=== PATIENT | female | born 1995 | race Caucasian/White ===

== ENCOUNTER 2018-10-04 05:35 | Inpatient (IN) | payer BC ==
--- NOTE | 2018-10-03 07:43 | P.HPOB ---
History of Present Illness H&P Date: 10/03/18 Chief Complaint: Repeat and tubal ligation This patient is a pleasant 23-year-old 2 para 1 female estimated date of confinement 10/05/2018 estimated gestational age 39-6/7 weeks gestation who is admitted to labor and delivery for elective repeat section and tubal ligation. Patient's is complicated by infertility and she conceived on Clomid. otherwise been uncomplicated with the exception of an episode of food poisoning. Patient's had a previous section desires repeat is also requesting permanent sterilization. 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 Morbid obesity History of Any Multi-Drug Resistant Organisms: None Reported Past Surgical History: Section Additional Past Surgical History / Comment(s): Exc [facility] Brain Tumor, C-S, lymph node left ear Past Anesthesia/Blood Transfusion Reactions: No Reported Reaction Smoking Status: Former smoker Past Alcohol Use History: None Reported Past Drug Use History: None Reported - Past Family History Father Family Medical History: Cancer, Coronary Artery Disease (CAD), Diabetes Mellitus, Hypertension Additional Family Medical History / Comment(s): SKIN CA Mother Family Medical History: Hypertension, Musculoskeletal Disorder, Renal Disease Additional Family Medical History / Comment(s): arthritis Medications and Allergies Home Medications Medication Instructions Recorded Confirmed Type Pnv,Calcium 72/Iron/Folic Acid 1 tab PO DAILY 07/19/18 09/29/18 History [ Plus Tablet] Allergies Allergy/AdvReac Type Severity Reaction Status Date / Time No Known Allergies Allergy Verified 09/29/18 12:39 Exam - OBG Physical Exam Abdomen: bowel sounds normal, no diffuse tenderness, no bruit present, no guarding noted, no hepatomegaly, no splenomegaly, no mass Vulva: both: normal Vagina: normal moisture, no discharge Cervix: no lesion (Cervix is closed this time.), no discharge Uterus: enlarged (Fundal height 43 cm) Results blood work shows she is A positive, rubella immune, RPR nonreactive, hepatitis B negative, Glucola was normal, ultrasounds have been normal, group B strep was positive. Assessment and Plan Assessment: This is a pleasant 23-year-old 2 para 1 female 39-6/7 weeks gestation admitted to labor and delivery for elective repeat section and also requesting permanent sterilization. Plan is repeat low transverse section and bilateral partial salpingectomy. Patient I've discussed this surgery and risks including risks of infection, bleeding, possible injury bowel, bladder, vessels, and/or other organs. She understands the risk of DVT and pulmonary embolism. Patient also understands a tubal ligation is considered permanent although there is a failure rate of less than 5 per thousand procedures done. All the patient's questions are answered written consent is obtained (1) 40 weeks gestation of Status: Acute Code(s): Z3A.40 - 40 WEEKS GESTATION OF SNOMED Co de(s): 70979945 (2) Previous delivery affecting Status: Acute Code(s): O34.219 - MATERNAL CARE FOR UNSP TYPE SCAR FROM PREVIOUS DEL SNOMED Code(s): 982776827 (3) Family planning Status: Acute Code(s): Z30.09 - ENCOUNTER FOR OTH GENERAL CNSL AND ADVICE ON CONTRACEPTION SNOMED Code(s): 026569558 (4) Group B streptococcal infection Status: Acute Code(s): A49.1 - STREPTOCOCCAL INFECTION, UNSPECIFIED SITE SNOMED Code(s): 923887788
[2018-10-04] MEDS ORDERED: LACTATED RINGERS 1,000 ML IV SCH (05:44)
[2018-10-04] MEDS ORDERED: CITRIC ACID-SODIUM CITRATE 15 ML CUP PO ONE (05:44)
[2018-10-04] MEDS ORDERED: LACTATED RINGERS 1,000 ML IV ONE (05:44)
[2018-10-04 06:19] LABS: Basophils % (A) 0 %; Eosinophils # (A) 0.1 k/uL (0-0.7); Eosinophils % (A) 1 %; HCT 36.2 % (34.0-46.0); HGB 11.8 gm/dL (11.4-16.0); Lymphocytes # (A) 2.2 k/uL (1.0-4.8); Lymphocytes % (A) 27 %; MCH 29.6 pg (25.0-35.0); MCHC 32.6 g/dL (31.0-37.0); MCV 90.6 fL (80.0-100.0); Monocytes # (A) 0.6 k/uL (0-1.0); Monocytes % (A) 7 %; Neutrophils % (A) 62 %; Platelet Count 230 k/uL (150-450); RDW 14.1 % (11.5-15.5)
[2018-10-04 06:30] VITALS: BMI 46.6
[2018-10-04] MEDS ORDERED: ceFAZolin 3 GM in SODIUM CHLORIDE 0.9% 100 ML IVPB ONE (07:15)
[2018-10-04] MEDS ORDERED: MORPHINE SULFATE (PF) 0.3 MG/0.3 ML SYR ONE (07:47)
[2018-10-04] MEDS ORDERED: ONDANSETRON 4 MG/2 ML VIAL ONE (07:47)
[2018-10-04] MEDS ORDERED: OXYTOCIN 10 UNIT/ML 1 ML VIAL ONE (07:47)
[2018-10-04] MEDS ORDERED: DEXAMETHASONE SOD PHOS (MDV) 100 MG/10 ML VIAL ONE (07:47)
[2018-10-04] MEDS ORDERED: KETOROLAC 30 MG/ML 1 ML VIAL ONE (07:47)
[2018-10-04] MEDS ORDERED: ePHEDrine SULFATE/0.9% NACL/PF 50 MG/5 ML SYRINGE IV ONE (07:47)
--- NOTE | 2018-10-04 08:49 | P.OP ---
Date of Procedure: 10/04/18 Preoperative Diagnosis: #1: 39-6/7 week intrauterine . #2: Previous section desires repeat. #3: Multi parity desires permanent sterilization Postoperative Diagnosis: Same Procedure(s) Performed: Repeat low transverse section and bilateral partial salpingectomy Anesthesia: spinal Surgeon: Lan Hathaway Dirt Supervisor #1: Joycelyn Henderson Estimated Blood Loss (ml): 1,000 Pathology: other (Bilateral fallopian tube segments) Condition: stable Disposition: floor Indications for Procedure: Please see dictated H&P for intimate details of this patient's admission. Brief summary this is a pleasant 23-year-old 2 para 1 female 39-6/7 weeks gestation who is admitted to labor and delivery for elective repeat section and also requesting permanent sterilization. Patient had a previous section does desire repeat. Patient states she is done having children and has requested permanent sterilization for control. She understands a tubal ligation is permanent however there is a failure rate of approximately 5 or less per thousand procedures done. She understands that this surgery itself has risks including risks of infection, bleeding, possible injury bowel, bladder, vessels, and/or other organs. All the patient's questions are answered and a written consent is obtained. Operative Findings: This patient had a vigorous viable female infant Apgars 9 and 9 delivery time is 0808 hrs. has spontaneous respirations and good cry and grossly appears normal. Description of Procedure: This patient has a Geronimo catheter placed to straight drain. She subsequently taken to the operating room where she sat up and spinal anesthetic is administered. With an adequate level of anesthesia she is abdominal prep and drape. Scalpels and taken the previous Pfannenstiel incision is incised. A second scalpel is taken down to the fascia the fascia scored with a scalpel. Fascial incision extended bilaterally using the Berger scissors. Fascia is dissected off the rectus muscles sharply. Rectus muscles are the peritoneum identified and entered sharply. Peritoneal incision extended superior and inferior without difficulty. Bladder blade is then placed. Bladder peritoneum as well on the lower uterine segment and therefore scalpels taken a low transverse uterine incision is made above this. Using a hemostat I into the uterine cavity bluntly and there is loss of clear fluid. This incision is then extended bluntly and the 's head is guided through the incision with fundal pressure. Mouth and nares are bulb suctioned there is a nuchal cord 1 which is reduced. We then deliver rest this 's body. This is a vigorous viable female Apgars are 9 and 9 delivery time is 0808 hrs. After delivery of the infant the umbilical cord is doubly clamped and cut. The placenta is then manually extracted intact. Uterus is then externalized and the demarcated with Carpenter clamps. Uterine incision and explored and all debris removed from the uterine cavity. Uterine incision is then closed using 0 Vicryl running locked fashion 2 layers in excellent hemostasis is noted. Then turned my attention a left fallopian tube approximately 4 cm from the cornual insertion I make a small window in the mesial salpinx with Bovie cautery. Using 2-0 silk I doubly ligate a 1-2 cm segment of left fallopian tube. This is handed off to pathology. Cauterization is done of the tubal ends. Excellent hemostasis is noted turned my attention the right fallopian tube is attenuated appears to be buried somewhat in the mesial salpinx. I carefully dissect this out and then with a similar technique excise a small portion of the right fallopian tube. Cauterization is done of the tubal ends. Again good hemostasis is noted. Excess fluid is removed from the abdomen and pelvis. Uterus placed back into the abdomen. I suspect the fallopian tubes once again the appear to be hemostatic. Parietal peritoneum was then identified and closed using 0 Vicryl running fashion. Rectus muscles reapproximated in 0 Vicryl interrupted fashion. Fascia is then closed using 0 PDS. Fascial incision is intact and hemostatic. Subcutaneous tissues and closed using a 3-0 Vicryl. Small bleeders are cauterized. The skin is and closed using kwesi. Sterile dressing is applied. All counts are correct 3. There are no complications. Infant and mother are taken to the birthing suite in satisfactory condition.
[2018-10-04] MEDS ORDERED: diphenhydrAMINE 50 MG/ML 1 ML VIAL IVP PRN (09:13)
[2018-10-04] MEDS ORDERED: NALOXONE 0.4 MG/ML 1 ML VIAL IV PRN (09:13)
[2018-10-04] MEDS ORDERED: ZOLPIDEM 5 MG TAB PO PRN (09:13)
[2018-10-04] MEDS ORDERED: ONDANSETRON 4 MG/2 ML VIAL IVP PRN (09:13)
[2018-10-04] MEDS ORDERED: SIMETHICONE 80 MG CHEWABLE PO PRN (09:13)
[2018-10-04] MEDS ORDERED: METOCLOPRAMIDE 5 MG/ML 2 ML VIAL IVP PRN (09:13)
[2018-10-04] MEDS ORDERED: OXYTOCIN 20 UNITS/1000 ML NS 1,000 ML IV SCH (09:13)
[2018-10-04] MEDS ORDERED: ACETAMINOPHEN TAB 325 MG TAB PO PRN (09:13)
[2018-10-04] MEDS ORDERED: diphenhydrAMINE 25 MG CAP PO PRN (09:13)
[2018-10-04] MEDS: KETOROLAC 30 MG/ML 1 ML VIAL IVP PRN ×2 (16:46→23:08)
[2018-10-04] MEDS: SENNOSIDES-DOCUSATE SODIUM 1 EACH TAB PO SCH ×2 (19:27)
[2018-10-04] MEDS: LACTATED RINGERS 1,000 ML IV SCH ×2 (22:26→22:27)
--- NOTE | 2018-10-05 06:17 | P.PNOBGPC ---
Subjective - Subjective Patient reports: Reports appetite normal, Reports voiding normally, Reports pain well controlled, Reports ambulating normally : doing well Objective - Vital Signs Latest vital signs: Vital Signs Temp Pulse Resp BP BP Pulse Ox 10/05/18 04:00 97.9 F 86 16 118/62 10/05/18 00:00 98.4 F 87 18 122/65 98 10/04/18 19:00 98.4 F 95 18 123/65 97 10/04/18 16:00 98.5 F 101 H 16 114/74 99 10/04/18 12:00 97.1 F L 98 16 128/69 99 10/04/18 10:45 105 H 16 118/68 100 10/04/18 10:15 116 H 16 119/61 98 10/04/18 09:45 97.7 F 99 16 98/49 98 10/04/18 09:30 115 H 16 105/58 99 10/04/18 09:15 112 H 16 104/52 99 10/04/18 09:00 121 H 16 100/52 99 10/04/18 08:45 96.6 F L 97 16 114/53 99 Intake and Output 10/04/18 10/04/18 10/05/18 14:59 22:59 06:59 Intake Total 1150 Output Total 300 1000 Balance 850 -1000 Intake: IV 950 Lactated Ringers 1,000 ml 950 @ 125 mls/hr IV .Q8H [facility] Rx#:[id number] Oral 200 Output: Urine 300 1000 Uretheral (Geronimo) 250 Other: Voiding Method Indwelling Catheter Toilet # Voids 1 1 - Exam Lungs: bilateral: normal Chest: Normal S1, Normal S2 Extremities: Present: normal Abdomen: Present: normal appearance, soft. Absent: distention, tenderness Incision: Present: normal, dry, intact Uterus: Present: normal, firm Assessment and Plan Assessment: Post operative day #1. Patient is resting without complaints. Vital signs are stable and she is afebrile. Her incision is intact and dry. Patient is tolerating regular diet. Plan today is to continue ambulation, allow the patient to shower. Check a CBC, continue routine postoperative care. (1) 40 weeks gestation of Current Visit: No Status: Acute Code(s): Z3A.40 - 40 WEEKS GESTATION OF SNOMED Code(s): 15967258 (2) Previous delivery affecting Current Visit: No Status: Acute Code(s): O34.219 - MATERNAL CARE FOR UNSP TYPE SCAR FROM PREVIOUS DEL SNOMED Code(s): 533681783 (3) Family planning Current Visit: No Status: Acute Code(s): Z30.09 - ENCOUNTER FOR OTH GENERAL CNSL AND ADVICE ON CONTRACEPTION SNOMED Code(s): 607442110 (4) Group B streptococcal infection Current Visit: No Status: Acute Code(s): A49.1 - STREPTOCOCCAL INFECTION, UNSPECIFIED SITE SNOMED Code(s): 780032449
[2018-10-05 08:06] LABS: Basophils % (A) 0 %; Eosinophils # (A) 0.2 k/uL (0-0.7); Eosinophils % (A) 2 %; HCT 28.6 % (34.0-46.0); HGB 10.1 gm/dL (11.4-16.0); Lymphocytes # (A) 2.7 k/uL (1.0-4.8); Lymphocytes % (A) 25 %; MCH 30.8 pg (25.0-35.0); MCHC 35.2 g/dL (31.0-37.0); MCV 87.6 fL (80.0-100.0); Mean Platelet Volume 8.2; Monocytes # (A) 0.9 k/uL (0-1.0); Monocytes % (A) 8 %; Neutrophils # (A) 6.9 k/uL (1.3-7.7); Neutrophils % (A) 64 %; Platelet Count 212 k/uL (150-450); RBC 3.27 m/uL (3.80-5.40); RDW 14.7 % (11.5-15.5); WBC 10.8 k/uL (3.8-10.6)
--- NOTE | 2018-10-05 08:26 | P.PN ---
Progress Note - Text Date: 10/05/2018 Time: 0707 The patient is status post section Vital signs stable VAS: 0-10 Patient has no complaints of pain. The patient incurred some minimal itching yesterday, this itching is now subsiding. Pain meds to be managed by service.
[2018-10-05] MEDS: SENNOSIDES-DOCUSATE SODIUM 1 EACH TAB PO SCH (09:06)
[2018-10-05] MEDS: HYDROcodone/APAP 5-325MG 1 EACH TAB PO PRN ×3 (09:06→23:49)
[2018-10-05] MEDS: IBUPROFEN 600 MG TAB PO PRN ×2 (13:33→22:06)
[2018-10-06] MEDS: SENNOSIDES-DOCUSATE SODIUM 1 EACH TAB PO SCH ×3 (00:39→21:15)
[2018-10-06] MEDS: HYDROcodone/APAP 5-325MG 1 EACH TAB PO PRN ×3 (04:59→17:25)
--- NOTE | 2018-10-06 06:14 | P.PNOBGPC ---
Subjective - Subjective Patient reports: Reports appetite normal, Reports voiding normally, Reports pain well controlled, Reports ambulating normally [place]: doing well Objective - Vital Signs Latest vital signs: Vital Signs Temp Pulse Resp BP BP Pulse Ox 10/06/18 00:00 97.6 F 89 16 113/64 10/05/18 20:00 98.1 F 88 16 133/82 10/05/18 16:00 97.5 F L 84 16 111/71 10/05/18 08:00 98.0 F 98 18 102/77 100 - Exam Lungs: bilateral: normal Chest: Normal S1, Normal S2 Extremities: Present: normal Abdomen: Present: normal appearance, soft. Absent: distention, tenderness Incision: Present: normal, dry, intact Uterus: Present: normal, firm - Labs Labs: Abnormal Lab Results - Last 24 Hours (Table) 10/05/18 Range/Units 06:31 WBC 10.8 H (3.8-10.6) k/uL RBC 3.27 L (3.80-5.40) m/uL Hgb 10.1 L (11.4-16.0) gm/dL Hct 28.6 L (34.0-46.0) % Assessment and Plan Assessment: Postoperative day #2. Patient is resting without complaints. Vital signs are stable she is afebrile. Uterus is firm nontender and her incision is intact and dry. Patient's hemoglobin yesterday was 10.1. Patient is tolerating regular diet and ambulating and urinating without difficulty. My impression this is a normal postoperative course. Patient does desire to go home today if her baby is allowed to go and therefore we discharged home today or tomorrow. (1) 40 weeks gestation of Current Visit: No Status: Acute Code(s): Z3A.40 - 40 WEEKS GESTATION OF SNOMED Code(s): 49360487 (2) Previous delivery affecting Current Visit: No Status: Acute Code(s): O34.219 - MATERNAL CARE FOR UNSP TYPE SCAR FROM PREVIOUS DEL SNOMED Code(s): 266691957 (3) Family planning Current Visit: No Status: Acute Code(s): Z30.09 - ENCOUNTER FOR OTH GENERAL CNSL AND ADVICE ON CONTRACEPTION SNOMED Code(s): 069794468 (4) Group B streptococcal infection Current Visit: No Status: Acute Code(s): A49.1 - STREPTOCOCCAL INFECTION, UNSPECIFIED SITE SNOMED Code(s): 595798108
--- NOTE | 2018-10-06 06:23 | P.DS ---
Providers Date of admission: 10/04/18 05:35 Expected date of discharge: 10/06/18 Attending physician: Lan Hathaway Primary care physician: Stated None - Discharge Diagnosis(es) (1) 40 weeks gestation of Current Visit: No Status: Acute (2) Previous delivery affecting Current Visit: No Status: Acute (3) Family planning Current Visit: No Status: Acute (4) Group B streptococcal infection Current Visit: No Status: Acute Hospital Course: Please see dictated H&P on this patient's admission. Brief summary this is a pleasant 23-year-old 2 para 1 female 39-6/7 weeks gestation admitted to labor and delivery for elective repeat section and tubal ligation. Patient is admitted undergoes above-named surgeries. Please see dictated operative note. Postoperative and 2 patient's felt be stable for discharge home follow up with me in 1 week for an incision check. Procedures: Repeat low transverse section and bilateral partial salpingectomy Patient Condition at Discharge: Good Plan - Discharge Summary Discharge Rx Participant: No New Discharge Prescriptions: New Ibuprofen [Motrin] 600 mg PO Q6HR PRN #40 tab PRN Reason: Mild Pain Or Fever >= 100.5 HYDROcodone/APAP 5-325MG [[place] 5-325] 1 each PO Q4HR PRN #18 tab PRN Reason: Moderate Pain No Action Pnv,Calcium 72/Iron/Folic Acid [ Plus Tablet] 1 tab PO DAILY Discharge Medication List Pnv,Calcium 72/Iron/Folic Acid [ Plus Tablet] 1 tab PO DAILY 07/19/18 [History] HYDROcodone/APAP 5-325MG [[place] 5-325] 1 each PO Q4HR PRN #18 tab 10/06/18 [Rx] Ibuprofen [Motrin] 600 mg PO Q6HR PRN #40 tab 10/06/18 [Rx] Follow up Appointment(s)/Referral(s): Lan Hathaway MD [STAFF PHYSICIAN] - 10/16/18 1:30 pm (Patient also has a visit on November 13 2 PM.) Patient Instructions/Handouts: (DC) Activity/Diet/Wound Care/Special Instructions: No heavy lifting or strenuous activity for 6 weeks. No driving as instructed. No intercourse or anything per vagina for 6 weeks. Please call if any fever, chills, excessive vaginal bleeding, and/or abdominal pain. Discharge Disposition: HOME SELF-CARE
[2018-10-06] MEDS: IBUPROFEN 600 MG TAB PO PRN ×3 (07:59→21:48)
[2018-10-07] MEDS: HYDROcodone/APAP 5-325MG 1 EACH TAB PO PRN ×2 (00:31→12:22)
[2018-10-07] MEDS: IBUPROFEN 600 MG TAB PO PRN ×2 (03:57→16:52)
[2018-10-07] MEDS: SENNOSIDES-DOCUSATE SODIUM 1 EACH TAB PO SCH (08:00)
[2018-10-07 10:44] VITALS: RESP 18; TEMP 98.5
[2018-10-07 17:49] VITALS: BP 101/56; PULSE 81
== END 2018-10-07 20:00 | disposition home or self-care (01) | DRG 784 ==
LOC: MERGE 05:35 → 4FBP 05:35
PROVIDERS: ADMIT Obstetrics & Gynecology; ATTEND Obstetrics & Gynecology
PROC: 0UB70ZZ Excision of Bilateral Fallopian Tubes, Open Approach (ICD-10-PCS; 2018-10-04)
PROC: 10D00Z1 Extraction of Products of Conception, Low, Open Approach (ICD-10-PCS; principal; 2018-10-04 08:00)
DX: O34.211 Maternal care for low transverse scar from previous cesarean delivery (principal); O99.354 Diseases of the nervous system complicating childbirth; E66.01 Morbid (severe) obesity due to excess calories; O99.214 Obesity complicating childbirth; O99.824 Streptococcus B carrier state complicating childbirth; B95.1 Streptococcus, group B, as the cause of diseases classified elsewhere; Z37.0 Single live birth; N85.8 Other specified noninflammatory disorders of uterus; Z30.2 Encounter for sterilization; Z3A.39 39 weeks gestation of pregnancy; N97.9 Female infertility, unspecified; G47.30 Sleep apnea, unspecified; L29.9 Pruritus, unspecified; Z79.899 Other long term (current) drug therapy; Z86.69 Personal history of other diseases of the nervous system and sense organs; Z87.891 Personal history of nicotine dependence; Z99.89 Dependence on other enabling machines and devices; Z98.890 Other specified postprocedural states; Z83.3 Family history of diabetes mellitus; Z82.49 Family history of ischemic heart disease and other diseases of the circulatory system; Z80.8 Family history of malignant neoplasm of other organs or systems; Z82.61 Family history of arthritis; Z84.1 Family history of disorders of kidney and ureter
CPT/HCPCS: 85025; 86850; 86900; 86901; 88302